=== PATIENT | female | born 1950 | race Caucasian/White ===

== ENCOUNTER → 2018-08-04 | Outpatient (CLI) | payer OTHER, MEDICARE ==
[~2018-08-04] MED LIST: ALLEGRA180 MG PO; ASPIRIN EC81 M1 PO; IBUPROFEN 800800 MG PO; K-DUR 20 MEQ T20 MEQ PO; NORCO 5-325 TA1 EACH PO; SINGULAIR; ZESTORETIC
== END ==
LOC: M.RAD 07-07 07:30
DX: Z12.31 Encounter for screening mammogram for malignant neoplasm of breast (principal)

== ENCOUNTER → 2018-10-04 | Outpatient (CLI) | payer OTHER, MEDICARE | LOC: M.RAD 09-28 10:30 | DX: M81.0 Age-related osteoporosis without current pathological fracture (principal); Z78.0 Asymptomatic menopausal state ==

== ENCOUNTER → 2019-11-01 | Outpatient (CLI) | payer OTHER, MEDICARE | LOC: M.RAD 10:49 | DX: Z12.31 Encounter for screening mammogram for malignant neoplasm of breast (principal) ==

== ENCOUNTER → 2021-01-30 | Outpatient (CLI) | payer OTHER, MEDICARE | LOC: M.RAD 10:01 | PROVIDERS: ATTEND Family Medicine | DX: Z12.31 Encounter for screening mammogram for malignant neoplasm of breast (principal) ==